=== PATIENT | male | born 1970 | race Caucasian/White ===

== ENCOUNTER 2019-10-05 05:38 | Inpatient (IN) | payer BC ==
[~2019-10-05] VITALS: Ht 175.3 cm; Wt 92.3 kg
[2019-10-05] MEDS ORDERED: LIDOCAINE 1%/EPI 1:200,000/PF 30 ML VIAL ONE (06:03)
[2019-10-05] MEDS ORDERED: BUPIVACAINE HCL/PF 0.25% 30 ML VIAL ONE (06:03)
[2019-10-05] MEDS ORDERED: BUPIVACAINE HCL/PF 0.5% 30 ML VIAL ONE (06:03)
[2019-10-05] MEDS ORDERED: LIDOCAINE/PF 1% 30 ML VIAL ONE (06:03)
[2019-10-05] MEDS ORDERED: MUPIROCIN CALCIUM 2% 22 GM OINTMENT ONE (06:03)
[2019-10-05] MEDS ORDERED: VANCOMYCIN HCL 1 GM/VIAL ONE (06:03)
[2019-10-05] MEDS ORDERED: BUPIVACAINE 0.25%/EPI 1:200,000/PF 10 ML VIAL ONE (06:03)
[2019-10-05] MEDS ORDERED: MICROFIBRILLAR COLLAGEN 1 GM PACKAGE TP ONE (06:04)
[2019-10-05] MEDS ORDERED: GELATIN SPONGE,ABSORBABLE 50 MM TP ONE (06:04)
[2019-10-05] MEDS ORDERED: SODIUM CL IRRIG SOLN BAG 3,000 ML IRRIG ONE (06:04)
[2019-10-05] MEDS ORDERED: BACITRACIN 50,000 UNITS/VIAL ONE (06:04)
[2019-10-05 06:14] LABS: BASOPHILS % (AUTO) 0.9 % (0.0-2.0); EOSINOPHILS % (AUTO) 2.4 % (1.0-6.0); HEMATOCRIT 42.2 % (41-53); HEMOGLOBIN 13.8 g/dL (13.5-17.5); LYMPHOCYTES # (AUTO) 1.1 K/uL (1.0-4.8); LYMPHOCYTES % (AUTO) 21.8 % (22.0-44.0); MEAN CORPUSCULAR HEMOGLOBIN 28.8 pg (26.0-34.0); MEAN CORPUSCULAR HGB CONC 32.7 G/dL (31.0-37.0); MEAN CORPUSCULAR VOLUME 88 fL (80-100); MONOCYTES # (AUTO) 0.4 K/uL (0.1-1.0); MONOCYTES % (AUTO) 7.7 % (2.0-9.0); NEUTROPHILS # (AUTO) 3.4 K/uL (1.8-7.7); NEUTROPHILS % (AUTO) 67.2 % (40.0-70.0); PLATELET COUNT (AUTO) 217 K/uL (150-450); RED BLOOD CELL COUNT(AUTO) 4.79 MIL/uL (4.50-5.90); RED CELL DISTRIBUTION WIDTH 13.9 % (11.5-14.5)
[2019-10-05 06:19] LABS: ANION GAP 2 mmol/L (8-16); CALCIUM, TOTAL 9.1 mg/dL (8.8-10.5); CARBON DIOXIDE 33 mmol/L (22-29); CHLORIDE 105 mmol/L (98-107); CREATININE 0.99 mg/dL (0.60-1.30); GLOMERULAR FILTR. RATE CALC > 60 mL/min (>60); GLUCOSE,RANDOM 107 mg/dL (70-110); POTASSIUM 4.6 mmol/L (3.5-5.1); SODIUM SERUM 140 mmol/L (136-145); UREA NITROGEN, BLOOD 17 mg/dL (7-18)
[2019-10-05 06:24] LABS: ALANINE AMINOTRANSFERASE 24 U/L (12-78); ALBUMIN 3.6 g/dL (3.4-5.0); ALKALINE PHOSPHATASE 62 U/L (46-116); ASPARTATE AMINOTRANSFERASE 24 U/L (15-37); BILIRUBIN,TOTAL 0.8 mg/dL (0.1-1.0); TOTAL PROTEIN, SERUM 7.2 g/dL (6.4-8.2)
[2019-10-05] MEDS ORDERED: BUPIVACAINE LIPOSOME/PF 1.3%-13.3MG/ML SUSPENSION 20 ML VIAL INJ ONE (06:45)
[2019-10-05] MEDS ORDERED: SUCCINYLCHOLINE CHLORIDE 20 MG/ML 10 ML VIAL IVP ONE (07:00)
[2019-10-05] MEDS ORDERED: LIDOCAINE/PF 2% 5 ML VIAL INJ ONE (07:00)
[2019-10-05] MEDS ORDERED: ONDANSETRON HCL 4 MG/2 ML VIAL IVP ONE (07:00)
[2019-10-05] MEDS ORDERED: 0.9% SODIUM CHLORIDE 10 ML VIAL IVP ONE (07:00)
[2019-10-05] MEDS ORDERED: ROCURONIUM BROMIDE 10 MG/ML 5 ML VIAL IVP ONE (07:00)
[2019-10-05] MEDS ORDERED: KETOROLAC TROMETHAMINE 60 MG/2 ML VIAL IM ONE (07:00)
[2019-10-05] MEDS ORDERED: DEXAMETHASONE SOD PHOS 4 MG/ML VIAL IVP ONE (07:00)
[2019-10-05] MEDS ORDERED: MIDAZOLAM HCL 2 MG/2 ML VIAL IVP ONE (07:00)
[2019-10-05] MEDS ORDERED: MORPHINE SULFATE/PF 0.5 MG/ML 10 ML AMP IVP ONE (07:00)
[2019-10-05] MEDS ORDERED: PROPOFOL 1% 20 ML VIAL IVP ONE (07:00)
[2019-10-05] MEDS ORDERED: FentaNYL CITRATE-PF 100 MCG/2 ML VIAL IVP ONE (07:00)
[2019-10-05] MEDS ORDERED: MEPERIDINE-PF 25 MG/ML VIAL IVP PRN (07:30)
[2019-10-05] MEDS ORDERED: CYCLOBENZAPRINE HCL 10 MG TABLET PO PRN (07:30)
[2019-10-05] MEDS ORDERED: OxyCODONE HCL/ACETAMINOPHEN 10-325 MG TABLET PO PRN (07:30)
[2019-10-05] MEDS ORDERED: HYDROmorphone 2 MG/ML SYRINGE IVP PRN ×2 (07:30)
[2019-10-05] MEDS ORDERED: FentaNYL CITRATE-PF 100 MCG/2 ML VIAL IVP PRN (07:30)
[2019-10-05] MEDS ORDERED: ONDANSETRON HCL 4 MG/2 ML VIAL IVP PRN (07:30)
[2019-10-05] MEDS ORDERED: SUGAMMADEX SODIUM 200 MG/2 ML VIAL IVP ONE (07:32)
[2019-10-05] MEDS ORDERED: OXYGEN THERAPY IH SCH (08:00)
[2019-10-05 09:08] VITALS: BP 118/74
== END 2019-10-05 11:15 | disposition home or self-care (01) | DRG 493 ==
LOC: EMS 05:38 → 4E 06:30
PROVIDERS: ADMIT Orthopaedic Surgery; ATTEND Orthopaedic Surgery
PROC: 0QSJ04Z Reposition Right Fibula with Internal Fixation Device, Open Approach (ICD-10-PCS; principal; 2019-10-05 07:00)
DX: S82.891A Other fracture of right lower leg, initial encounter for closed fracture (principal); M25.00 Hemarthrosis, unspecified joint; S93.03XA Subluxation of unspecified ankle joint, initial encounter; V00.131A Fall from skateboard, initial encounter; Y92.89 Other specified places as the place of occurrence of the external cause; Y99.8 Other external cause status; Y93.51 Activity, roller skating (inline) and skateboarding
CPT/HCPCS: C9290; G0378; J0330; J0690; J1100; J1885; J2250; J2274; J2405; J2704; J3010; J3370; J3490